=== PATIENT | female | born 1995 | race Caucasian/White ===

== ENCOUNTER 2016-06-04 19:12 | Emergency (ER) | payer OTHER ==
[~2016-06-04] VITALS: Ht 170.2 cm; Wt 59.0 kg
[2016-06-04 19:39] VITALS: BP 122/74
--- NOTE | 2016-06-04 21:13 | NUR ---
Patient to bed 07.
--- NOTE | 2016-06-04 21:21 | NUR ---
20 Y/O F W/C/O vomitting/diarrhea since 2pm, unable to keep food down. C/O GENERAL WEAKNESS AND ABD PAIN. ER MD MADE AWARE.
[2016-06-04] MEDS ORDERED: KETOROLAC 30 MG/ML VIAL IVP ONE (21:30)
[2016-06-04] MEDS ORDERED: ONDANSETRON 4 MG/2 ML VIAL IVP ONE (21:30)
[2016-06-04] MEDS ORDERED: NACL 0.9% 1,000 ML IV ONE (21:30)
[2016-06-04 21:48] LABS: HEMOGLOBIN 14.9 g/dL (12.0-16.0); MEAN CORPUSCULAR HEMOGLOBIN 26 pg (27-31); MEAN CORPUSCULAR HGB CONC 32 g/dL (33-37); MEAN CORPUSCULAR VOLUME 83 fL (80-94); PLATELET COUNT (AUTO) 299 K/uL (140-450)
[2016-06-04 22:04] LABS: NEUTROPHILS % (MANUAL) 77 (43-65)
[2016-06-04 22:05] LABS: ANION GAP 18.8 (8-16); BAND % (MANUAL) 19 % (0-8); CARBON DIOXIDE 22.4 mmol/L (21-32); LYMPHOCYTES % (MANUAL) 4 % (20-46); PLATELET ESTIMATE ADEQUATE; POTASSIUM 4.2 mmol/L (3.5-5.1)
[2016-06-04 22:19] LABS: ALBUMIN 4.5 g/dL (3.4-5.0)
--- NOTE | 2016-06-04 22:35 | NUR ---
PER DR STOCK VERBAL ORDERS TO START A SECOND BAG 1000ML IV FLUIDS OF 0.9 NS 100 ML/HR.
--- NOTE | 2016-06-04 23:10 | NUR ---
Patient going to CT via wheelchair per puneet Smith.
--- NOTE | 2016-06-04 23:20 | NUR ---
Patient back from CT via wheelchair per tech.
--- NOTE | 2016-06-04 23:28 | NUR ---
PT RESTING IN BED, ALERT AND ORIENTED. ABLE TO AMBUALTE TO THE RESTROOM.
[2016-06-05 00:40] VITALS: BP 105/58
--- NOTE | 2016-06-05 00:40 | NUR ---
Patient discharged with v/s stable. Written and verbal after care instructions given and explained. Patient alert, oriented and verbalized understanding of instructions. Ambulatory with steady gait. All questions addressed prior to discharge. ID band removed. Patient advised to follow up with PMD TOMORROW OR RETURN TO ER IF CONDITION WORSENS. Rx of TRAMADOL AND ZOFRAN given. Patient educated on indication of medication including possible reaction and side effects. Opportunity to ask questions provided and answered.
[2016-06-05] MEDS ORDERED: NACL 0.9% 1,000 ML IV ONE (01:05)
== END 2016-06-05 00:40 | disposition home or self-care (01) ==
LOC: MED 19:12
DX: T62.8X1A Toxic effect of other specified noxious substances eaten as food, accidental (unintentional), initial encounter (principal); Y92.89 Other specified places as the place of occurrence of the external cause
CPT/HCPCS: 36415; 74176; 80053; 81025; 84702; 85025; 96361; 96374; 96375; 99285; J1885; J2405; J7030